=== PATIENT | male | born 1940 | race Asian ===

== ENCOUNTER 2023-04-08 06:40 | Day surgery (SDC) | payer MEDICAID ==
[~2023-04-08] VITALS: Ht 152.4 cm; Wt 50.8 kg
[2023-04-08] MEDS ORDERED: MIDAZOLAM HCL 5 MG/5 ML VIAL ONE (06:59)
[2023-04-08] MEDS ORDERED: fentaNYL CITRATE/PF 100 MCG/2 ML AMP ONE (06:59)
[2023-04-08 14:08] VITALS: BP_SYST 126
== END 2023-04-08 10:00 | disposition home or self-care (01) ==
LOC: SDS 06:40 → SMU 06:53 → SDS 10:00
PROVIDERS: ATTEND Internal Medicine
DX: Z12.11 Encounter for screening for malignant neoplasm of colon (principal); D12.8 Benign neoplasm of rectum; K29.50 Unspecified chronic gastritis without bleeding; Z85.028 Personal history of other malignant neoplasm of stomach; B96.81 Helicobacter pylori [H. pylori] as the cause of diseases classified elsewhere; K64.8 Other hemorrhoids; J44.9 Chronic obstructive pulmonary disease, unspecified; Z87.891 Personal history of nicotine dependence; Z90.49 Acquired absence of other specified parts of digestive tract; Z79.899 Other long term (current) drug therapy
CPT/HCPCS: 45380; 43239; 87081; 36415; 88305; 88312; 88313; 99152; G0378; J2250; J3010